=== PATIENT | female | born 1970 | race Asian ===

== ENCOUNTER 2021-01-03 07:30 | Inpatient (IN) ==
[~2021-01-03 07:30] MED LIST: Buffered Lidocaine 1% SYRIN 1 ml INTRADERM ONE; Lactated Ringers 1000 ml BAG 1,000 ML IV SCH
[2021-01-03] MEDS ORDERED: Dexmedetomidine 200 mcg/2 ml 2 ml VIAL (200 mcg) ONE (10:22)
[2021-01-03] MEDS ORDERED: Ketamine HCL 50 mg/ml 10 ml VIAL (500 MG) ONE (10:23)
[2021-01-03] MEDS ORDERED: Remifentanil 2 MG VIAL ONE (10:23)
[2021-01-03] MEDS ORDERED: Midazolam 2 mg/2 ml VIAL 1 mg/ml 2 ml VIAL (2 mg) ONE (10:23)
[2021-01-03] MEDS ORDERED: fentaNYL 100 mcg/2 ml 50 MCG/ML VIAL ONE ×2 (10:23→12:58)
[2021-01-03] MEDS ORDERED: Rocuronium 50 mg VIAL 10 mg/ml 5 ml VIAL (50 mg) ONE ×2 (10:24→15:26)
[2021-01-03] MEDS ORDERED: Phenylephrine IV 10 MG/ML 1 ml VIAL ONE ×2 (10:24→11:06)
[2021-01-03] MEDS ORDERED: Ondansetron 4 mg VIAL 2 MG/ML 2 ml VIAL ONE (10:24)
[2021-01-03] MEDS ORDERED: Dexamethasone IV 4 MG/ML VIAL 1 ml VIAL ONE (10:24)
[2021-01-03] MEDS ORDERED: Lidocaine 2% PF 5 ML VIAL ONE (10:24)
[2021-01-03] MEDS ORDERED: Glycopyrrolate IV 0.2 MG/ML 1 ML VIAL ONE (10:24)
[2021-01-03] MEDS ORDERED: Propofol 10 MG/ML 20 ML BTL ONE ×2 (10:24→11:13)
[2021-01-03] MEDS ORDERED: Propofol 10 mg/ml 100 ML BTL 200 ML ONE (11:39)
[2021-01-03] MEDS ORDERED: Magnesium Sulfate IV 0.5 GM/ML 2 ml VIAL (1 gm) ONE (11:39)
[2021-01-03] MEDS ORDERED: ceFAZolin 2 GM PREMIX 2 GM/50 ML BAG ONE (12:03)
[2021-01-03] MEDS ORDERED: ceFAZolin VIAL VIAL ONE (12:20)
[2021-01-03] MEDS ORDERED: Morphine ER 30 mg TAB ** extended release PO ONE (12:57)
[2021-01-03] MEDS ORDERED: Morphine ER 30 mg TAB ** extended release ONE (13:00)
[2021-01-03] MEDS ORDERED: diPHENhydraMINE IV 50 MG/ML 1 ml VIAL (BENADRYL) ONE (13:44)
[2021-01-03] MEDS ORDERED: Bacitracin INJECTION (manuf dc) 50,000 UNITS ONE (14:19)
[2021-01-03] MEDS ORDERED: Acetaminophen IV 1 GM/100ML 100 ML ONE (16:47)
[2021-01-03] MEDS ORDERED: HYDROmorphone 1 MG/1 ML SYRINGE ONE (17:47)
[2021-01-03] MEDS ORDERED: Phenylephrine 40 mcg/mL 10mL (400mcg) SYRINGE ONE ×2 (17:58→18:37)
[2021-01-03] MEDS ORDERED: Metoclopramide 5 MG/ML VIAL (10 mg) ONE (18:06)
[2021-01-03] MEDS ORDERED: Ondansetron 4 mg VIAL 2 MG/ML 2 ml VIAL IV PRN (18:20)
[2021-01-03] MEDS ORDERED: Phenylephrine IV 50 MG in NS 0.9% 250 ml 245 ML IV PRN (18:33)
[2021-01-03] MEDS ORDERED: Lactated Ringers 1000 ml BAG 1,000 ML IV ONE (18:42)
[2021-01-03] MEDS ORDERED: Metoclopramide 5 MG/ML VIAL (10 mg) IV PRN (18:54)
[2021-01-03] MEDS ORDERED: Naloxone 0.4 mg VIAL 0.4 mg/ml 1 ml VIAL IV PRN (18:54)
[2021-01-03] MEDS ORDERED: Morphine 4 MG/ML VIAL (1 ml) ONE (19:10)
[2021-01-03] MEDS: Morphine 4 MG/ML VIAL (1 ml) IV PRN ×2 (19:11→19:25)
[2021-01-03] MEDS ORDERED: diPHENhydraMINE IV 50 MG/ML 1 ml VIAL (BENADRYL) SLOW PUSH ONE (20:22)
[2021-01-03] MEDS ORDERED: Famotidine IV 10 MG/ML 2 ml VIAL (20 mg) IV SLOW PU ONE (20:22)
[2021-01-03 21:00] LABS: ABS Lymphocytes 0.7 10^3/ul (1.0-4.8); ABS Monocytes 0.4 10^3/ul (0-0.8); Eosinophil % 0.1 %; Hematocrit 34 % (35-47); Hemoglobin 11.6 g/dL (12.0-16.0); Lymphocyte % 3.9 %; Mean Corpuscular HGB Conc 34 g/dL (31-36); Mean Corpuscular Hemoglobin 31 pg (27-31); Mean Corpuscular Volume 90 fL (80-97); Platelet Count 514 10^3/uL (150-450); Red Blood Count 3.78 10^6 /uL (3.70-4.87); Red Cell Distribution Width 14 % (10-15); White Blood Count 18.2 10^3/uL (3.5-10.8)
[2021-01-03] MEDS ORDERED: Norepinephrine 16MCG/ML IVPRE 4,000 MCG/250 ML BAG IV SCH (21:00)
[2021-01-03 21:06] LABS: INR 1.09 (0.82-1.09)
[2021-01-03 21:16] LABS: Potassium 3.9 mmol/L (3.5-5.0)
[2021-01-03 21:17] LABS: Calcium 8.5 mg/dL (8.6-10.3); EGFR African American 114.7 (>60); EGFR Non-African American 94.8 (>60); Phosphorus 3.8 mg/dL (2.5-5.0)
[2021-01-03] MEDS: Morphine 2 MG/ML SYRINGE IV PRN (22:01)
[2021-01-04] MEDS ORDERED: diPHENhydraMINE 25 mg TAB PO PRN
[2021-01-04] MEDS: Morphine 2 MG/ML SYRINGE IV PRN ×6 (01:06→21:30)
[2021-01-04] MEDS: diPHENhydraMINE IV 50 MG/ML 1 ml VIAL (BENADRYL) SLOW PUSH PRN ×3 (03:05→19:22)
[2021-01-04 05:35] LABS: ABS Basophils 0.1 10^3/ul (0-0.2); ABS Lymphocytes 0.8 10^3/ul (1.0-4.8); ABS Monocytes 0.9 10^3/ul (0-0.8); ABS Neutrophils 19.5 10^3/ul (1.5-7.7); Hematocrit 31 % (35-47); Hemoglobin 10.6 g/dL (12.0-16.0); Lymphocyte % 3.5 %; Mean Corpuscular HGB Conc 34 g/dL (31-36); Mean Corpuscular Hemoglobin 31 pg (27-31); Mean Corpuscular Volume 90 fL (80-97); Mean Platelet Volume 6.9 fL (7.4-10.4); Platelet Count 393 10^3/uL (150-450); Red Blood Count 3.49 10^6 /uL (3.70-4.87); Red Cell Distribution Width 14 % (10-15); White Blood Count 21.2 10^3/uL (3.5-10.8)
[2021-01-04 05:58] LABS: Calcium 8.5 mg/dL (8.6-10.3); EGFR African American 118.9 (>60); EGFR Non-African American 98.2 (>60); Potassium 4.2 mmol/L (3.5-5.0)
[2021-01-04] MEDS ORDERED: [UNRECOGNIZED DRUG - OTHER] PO PRN (09:55)
[2021-01-04] MEDS ORDERED: Ondansetron ODT 4 mg TAB 4 MG TAB PO PRN (09:55)
[2021-01-04] MEDS ORDERED: Lidocaine 5% OINT TUBE TOPICAL PRN (10:45)
[2021-01-04] MEDS: Morphine ER 30 mg TAB ** extended release PO SCH (11:53)
[2021-01-04] MEDS ORDERED: Vitamin THERAPEUTIC TAB PO SCH (21:00)
[2021-01-05] MEDS: Morphine 2 MG/ML SYRINGE IV PRN ×2 (02:35→05:51)
[2021-01-05 04:43] LABS: Hematocrit 25 % (35-47); Hemoglobin 8.4 g/dL (12.0-16.0); Mean Corpuscular HGB Conc 33 g/dL (31-36); Mean Corpuscular Hemoglobin 30 pg (27-31); Mean Corpuscular Volume 90 fL (80-97); Mean Platelet Volume 6.9 fL (7.4-10.4); Platelet Count 294 10^3/uL (150-450); Red Blood Count 2.78 10^6 /uL (3.70-4.87); Red Cell Distribution Width 15 % (10-15); White Blood Count 11.2 10^3/uL (3.5-10.8)
[2021-01-05 04:59] LABS: EGFR African American 130.5 (>60); EGFR Non-African American 107.9 (>60); Magnesium 1.7 mg/dL (1.9-2.7); Potassium 3.5 mmol/L (3.5-5.0)
[2021-01-05] MEDS: diPHENhydraMINE IV 50 MG/ML 1 ml VIAL (BENADRYL) SLOW PUSH PRN (05:51)
[2021-01-05] MEDS ORDERED: Fluticasone NASAL SPRAY 50MCG 16 gm SPRAY BTL INTRANASAL SCH (09:00)
[2021-01-05] MEDS: Morphine ER 30 mg TAB ** extended release PO SCH (11:36)
[2021-01-05 12:10] VITALS: BP 94/64
== END 2021-01-05 11:50 | disposition home or self-care (01) | DRG 460 ==
LOC: AA 11:22 → ICU 20:29 → SSU 01-04 16:21
PROVIDERS: ADMIT Neurological Surgery; ATTEND Neurological Surgery